=== PATIENT | female | born 1985 | race Caucasian/White ===

== ENCOUNTER 2016-12-06 21:15 | Emergency (ER) | payer MEDICARE ==
[~2016-12-06 21:15] MED LIST: TRANDATE200 MG PO
== END 2016-12-06 22:09 | disposition home or self-care (01) ==
LOC: ER1 21:15
DX: L02.31 Cutaneous abscess of buttock (principal); I10 Essential (primary) hypertension; Z88.1 Allergy status to other antibiotic agents; Z88.6 Allergy status to analgesic agent
CPT/HCPCS: 10061; 87070; 87077; 87186; 87205; 99283